=== PATIENT | female | born 1955 | race Caucasian/White ===

== ENCOUNTER 2018-12-18 20:45 | Emergency (ER) | payer BC, OTHER, SELFPAY ==
[2018-12-18 20:48] VITALS: BP 116/85; PULSE 71; RESP 18; TEMP 36.6; O2SAT 99
--- NOTE | 2018-12-18 20:58 | ED.GENADUL_ITS ---
Discharge Plan Disposition Patient Disposition: HOME Condition: Stable Discharge Details Chief Complaint: Laceration Clinical Impression: Laceration of lip Primary Care Provider: Crystal Banks ED Provider: Dilip Cabrera Home Meds and New Rx's Prescriptions: No Action calcium carb and citrate-vitD3 1 EACH tablet extended release 1 ea PO DAILY RF: 0 cinnamon bark 500 MG capsule 500 mg PO RF: 0 amlodipine 5 mg tablet 5 mg PO DAILY Qty: 90 RF: 3 lisinopril 20 mg tablet 20 mg PO DAILY Qty: 90 RF: 3 Discharge Instructions Instructions: Laceration (ED) Additional Instructions: return in 7-10 days to have the sutures reevaluated for removal if signs of infection develop such as redness spreading from the wound or yellow/white discharge from the wound return to the emergency department sooner Medical Decision Making 63 yo female states she tripped and hit her face on a step, no loc and fell from standing with no preceding symptoms to suggest syncope vs prescyope. She has a v shaped laceration that extends through the nia border of the right mid upper lip and appears to have had part of the lip skin removed during the fall, and has a 1..5 cm right upper lip wound on the mucosal surface that will require sutures as well No loose teeth or chipped teeth on exam. She meets all criteria per [place] head ct rules and nexus to not image her head or c spine at this time I alligned the nia border as best could be done given part of it was now gone from the skin being torn off with 4 sutures, and placed 2 absorbable sutures on the inner mucosal wound. She will return in 7-10 days for recheck to see if sutures are ready to be removed and return sooner for signs of infection Differential Diagnosis laceration, abrasion HPI General Mode of arrival: ambulatory . Date/Time Provider Initiated Documentation: 12/18/18 20:45 . Limitations to Documentation: no limitations . Information obtained by: patient . History of Present Illness 63 year old F presents to the emergency department with the chief complaint of upper mid lip laceration, described as moderate, and is localized to the face (upper lip). Patient reports no radiation. and it has been constant. No relieving factors improve symptom(s), No exacerbating factors reported . Patient did receive the following treatments prior to arrival, none Related Data Home Medications Medication Instructions Recorded Confirmed calcium carb and citrate-vitD3 1 ea PO DAILY 01/19/13 12/18/18 cinnamon bark 500 mg PO 03/28/17 07/11/18 amlodipine 5 mg tablet 5 mg PO DAILY #90 tab-cap 08/08/18 12/18/18 lisinopril 20 mg tablet 20 mg PO DAILY #90 tab-cap 08/08/18 12/18/18 Previous Rx's Medication Instructions Recorded amlodipine 5 mg tablet 5 mg PO DAILY #90 tab-cap 08/08/18 lisinopril 20 mg tablet 20 mg PO DAILY #90 tab-cap 08/08/18 Allergies Allergy/AdvReac Type Severity Reaction Status Date / Time hydrochlorothiazide AdvReac Unknown hypercalcem Verified 12/18/18 20:50 ia General Stated Complaint: Laceration NIRU: 4 Review of Systems Review of Systems All systems reviewed & are unremarkable except as noted in HPI and below Constitutional Denies chills and Denies fever(s) ENT Denies change in voice Cardiovascular Denies chest pain and Denies dyspnea Respiratory Denies cough and Denies dyspnea Gastrointestinal Denies abdominal pain, Denies nausea and Denies vomiting PFSH Surgical History Parathyroidectomy Family History Mother Personal history of malignant neoplasm Father Heart disease Grandmother Diabetes Social History Smoking/Tobacco Use Status: Never Alcohol Intake: current Alcohol Intake frequency: a few times a week Alcohol type: wine Substance use type: does not use Number of Children: 1 What type of physical activity do you participate in: walking Duration: 15-30 minutes/day Frequency: 3-4 times per week Working smoke detector in home: Yes Fire extinguisher in home: Yes Carbon monox detector in home: Yes Exam Const General: no acute distress Orientation: alert HENMT Head: normal to inspection Ears: external ears normal General nose exam: external nose normal Mouth: moist mucous membranes Eyes General: appearance normal, both eyes and all related structures Neck Neck: normal visual inspection Resp Effort & Inspection: normal respiratory effort and able to speak in complete sentences Cardio Rate: regular rate Skin General skin exam: no rashes or lesions noted Neuro General: alert and oriented x3 Extrem General: normal to inspection Psych Mental Status: mental status grossly normal Course Vital Signs Temperature 36.6 C 12/18/18 20:48 Pulse 71 12/18/18 20:48 Respiratory Rate 18 12/18/18 20:48 Blood Pressure 116/85 12/18/18 20:48 Pulse Oximetry 99 12/18/18 20:48 Temperature 36.6 C 12/18/18 20:48 Temperature Source Skin 12/18/18 20:48 Pulse 71 12/18/18 20:48 Respiratory Rate 18 12/18/18 20:48 Respiratory Effort Non-Labored 12/18/18 20:51 Blood Pressure 116/85 12/18/18 20:48 Blood Pressure Position Sitting 12/18/18 20:48 Pulse Oximetry 99 12/18/18 20:48 Oxygen Delivery Method Room Air 12/18/18 20:48 Oxygen Flow Rate 0 12/18/18 20:48 Pain Level 4 12/18/18 20:48 Procedures Laceration Laceration 1: Site: lip Size (cm): 2 Description: irregular Local Anesthetic: Lidocaine 1% and with Epi Amount of anesthesia used (mL): 6 Pre-repair: wound explored, irrigated extensively and wound margins revised Skin layer closed with: vicryl Size (cm): 5-0 Number of sutures: 4 Laceration 2: Site: lip Size (cm): 1.5 Description: linear Depth: simple, single layer Local Anesthetic: Lidocaine 1% and with Epi Amount of anesthesia used (mL): 3 Pre-repair: wound explored and irrigated extensively Skin layer closed with: other (chromic gut) Size (cm): 5-0 Number of sutures: 2
== END 2018-12-18 21:30 | disposition home or self-care (01) ==
LOC: ER 21:36
PROVIDERS: Emergency Provider Emergency Medicine; PCP Internal Medicine
DX: S01.511A Laceration without foreign body of lip, initial encounter (principal); W10.8XXA Fall (on) (from) other stairs and steps, initial encounter
CPT/HCPCS: 12011

== ENCOUNTER 2018-12-19 08:22 | Emergency (ER) | payer BC, SELFPAY ==
[2018-12-19 08:26] VITALS: BP 124/87; PULSE 91; RESP 16; TEMP 36.6; O2SAT 99
--- NOTE | 2018-12-19 08:35 | ED.GENADUL_ITS ---
Discharge Plan Disposition Patient Disposition: HOME Condition: Improving Discharge Details Chief Complaint: Recheck Clinical Impression: Dehiscence of laceration repair Primary Care Provider: Crystal Banks ED Provider: Edwar Patton Home Meds and New Rx's Prescriptions: New cephalexin 500 mg capsule 500 mg PO TID 7 Days Qty: 21 RF: 0 Continued calcium carb and citrate-vitD3 1 EACH tablet extended release 1 ea PO DAILY RF: 0 cinnamon bark 500 MG capsule 500 mg PO RF: 0 amlodipine 5 mg tablet 5 mg PO DAILY Qty: 90 RF: 3 lisinopril 20 mg tablet 20 mg PO DAILY Qty: 90 RF: 3 Discharge Instructions Additional Instructions: Return next Tuesday or Tuesday for suture removal. I placed an additional 2 nylon sutures that will need to be removed. 3 additional intraoral sutures were placed that we will slowly dissolved. Ice and/or popsicles for pain control. Return for any acute concerns. Continue your regular medication Medical Decision Making 63-year-old female who fell and struck her face at home last evening approximately 730. She suffered an upper lip and inner mucosal laceration across the vermilion border. It was repaired last night and she feels it is dehisced overnight. She arrives with normal vital signs and indeed has gaping of the wound at the vermilion border as well as within the oropharynx. Discussed with her is high risk for infection but given the cosmetic nature she agrees to pursue repeat repair. Anesthetized and cleansed. Repaired with suture: 2 5-0 nylon sutures across the vermilion border. 3 interrupted Vicryl sutures in the inner mucosa. I will place her on Keflex. She understands return precautions and will follow-up for suture removal. HPI General Mode of arrival: ambulatory . Date/Time Provider Initiated Documentation: 12/19/18 08:24 . Limitations to Documentation: no limitations . Information obtained by: patient and family . History of Present Illness 63 year old F presents to the emergency department with the chief complaint of Wound check and question dehiscence, described as mild, Quality is described as dull and constant, and is localized to the face. Patient reports no radiation. Patient started experiencing this hour(s) and it has been constant. No relieving factors improve symptom(s), No exacerbating factors reported . Patient notes no other symptoms.. Patient did receive the following treatments prior to arrival, none Related Data Home Medications Medication Instructions Recorded Confirmed calcium carb and citrate-vitD3 1 ea PO DAILY 01/19/13 12/18/18 cinnamon bark 500 mg PO 03/28/17 07/11/18 amlodipine 5 mg tablet 5 mg PO DAILY #90 tab-cap 18 12/18/18 lisinopril 20 mg tablet 20 mg PO DAILY #90 tab-cap 08/08/18 12/18/18 cephalexin 500 mg PO TID 7 Days #21 cap 12/19/18 Previous Rx's Medication Instructions Recorded amlodipine 5 mg tablet 5 mg PO DAILY #90 tab-cap 08/08/18 lisinopril 20 mg tablet 20 mg PO DAILY #90 tab-cap 08/08/18 cephalexin 500 mg PO TID 7 Days #21 cap 12/19/18 Allergies Allergy/AdvReac Type Severity Reaction Status Date / Time hydrochlorothiazide AdvReac Unknown hypercalcem Verified 12/18/18 20:50 ia General Stated Complaint: Recheck NIRU: 5 Review of Systems Review of Systems No fever, no discharge. 6 systems reviewed and otherwise neg [facility] Surgical History Parathyroidectomy Family History Mother Personal history of malignant neoplasm Father Heart disease Grandmother Diabetes Social History Smoking/Tobacco Use Status: Never Alcohol Intake: current Alcohol Intake frequency: a few times a week Alcohol type: wine Substance use type: does not use Number of Children: 1 What type of physical activity do you participate in: walking Duration: 15-30 minutes/day Frequency: 3-4 times per week Working smoke detector in home: Yes Fire extinguisher in home: Yes Carbon monox detector in home: Yes Exam Narrative Exam Narrative: GEN: awake, alert, oriented 3. Pleasant, well groomed, interactive. HEAD: Normocephalic, atraumatic ENT: Mucous membranes moist, appears to be dehiscence of wound at the vermilion border with approximately 5 mm gaping. The inner mucosa of the lip has a gaping wound as well EYES: PERRL, EOMI NECK: Full ROM, no EDITH, no menigismus EXT: Full ROM, no edema, no rash Neuro: Grossly normal neurologic exam, conversant, interactive. Psych: Speech fluent, thoughts congruent, affect normal Course Vital Signs Temperature 36.6 C 12/19/18 08:26 Pulse 91 H 12/19/18 08:26 Respiratory Rate 16 12/19/18 08:26 Blood Pressure 124/87 12/19/18 08:26 Pulse Oximetry 99 12/19/18 08:26 Temperature 36.6 C 12/19/18 08:26 Temperature Source Skin 12/19/18 08:26 Pulse 91 H 12/19/18 08:26 Respiratory Rate 16 12/19/18 08:26 Blood Pressure 124/87 12/19/18 08:26 Pulse Oximetry 99 12/19/18 08:26 Oxygen Delivery Method Room Air 12/19/18 08:26 Oxygen Flow Rate 0 12/19/18 08:26 Pain Level 2 12/19/18 08:26 Procedures Laceration Laceration 1: Site: face and lip Side (If applicable): left Description: involves nia border and involves lid margin Local Anesthetic: Lidocaine 1% Pre-repair: wound explored and irrigated extensively Skin layer closed with: nylon Size (cm): 5-0 Number of sutures: 2 Muscle layer closed with: vicryl Size: 5-0 Number of sutures: 3
[2018-12-19 09:18] VITALS: BP 124/87; PULSE 91; RESP 16; TEMP 36.6; O2SAT 99
== END 2018-12-19 09:20 | disposition home or self-care (01) ==
PROVIDERS: Emergency Provider Emergency Medicine; PCP Internal Medicine
DX: T81.33XA Disruption of traumatic injury wound repair, initial encounter (principal)
CPT/HCPCS: 12011

== ENCOUNTER 2018-12-26 09:57 | Emergency (ER) | payer BC, SELFPAY ==
[2018-12-26 10:00] VITALS: TEMP 36.5
--- NOTE | 2018-12-26 10:09 | ED.GENADUL_ITS ---
Discharge Plan Disposition Patient Disposition: HOME Condition: Stable Discharge Details Chief Complaint: SutureRem Clinical Impression: Encounter for removal of sutures Primary Care Provider: Crystal Banks ED Provider: Dilip Cabrera Home Meds and New Rx's Prescriptions: No Action calcium carb and citrate-vitD3 1 EACH tablet extended release 1 ea PO DAILY RF: 0 cinnamon bark 500 MG capsule 500 mg PO RF: 0 amlodipine 5 mg tablet 5 mg PO DAILY Qty: 90 RF: 3 lisinopril 20 mg tablet 20 mg PO DAILY Qty: 90 RF: 3 Discharge Instructions Instructions: Stitches Removal (ED) HPI General Date/Time Provider Initiated Documentation: 12/26/18 09:59 . Related Data Home Medications Medication Instructions Recorded Confirmed calcium carb and citrate-vitD3 1 ea PO DAILY 01/19/13 12/18/18 cinnamon bark 500 mg PO 03/28/17 07/11/18 amlodipine 5 mg tablet 5 mg PO DAILY #90 tab-cap 08/08/18 12/18/18 lisinopril 20 mg tablet 20 mg PO DAILY #90 tab-cap 18 12/18/18 Previous Rx's Medication Instructions Recorded amlodipine 5 mg tablet 5 mg PO DAILY #90 tab-cap 08/08/18 lisinopril 20 mg tablet 20 mg PO DAILY #90 tab-cap 08/08/18 Allergies Allergy/AdvReac Type Severity Reaction Status Date / Time hydrochlorothiazide AdvReac Unknown hypercalcem Verified 12/18/18 20:50 ia General Stated Complaint: SutureRem NIRU: 4 PFSH Social History Smoking/Tobacco Use Status: Never Alcohol Intake: current Alcohol Intake frequency: a few times a week Alcohol type: wine Substance use type: does not use Number of Children: 1 What type of physical activity do you participate in: walking Duration: 15-30 minutes/day Frequency: 3-4 times per week Working smoke detector in home: Yes Fire extinguisher in home: Yes Carbon monox detector in home: Yes Do you feel safe at home: Yes Do you feel safe in your relationship?: Yes Course Vital Signs Temperature 36.5 C 12/26/18 10:00 Temperature 36.5 C 12/26/18 10:00 Oxygen Delivery Method Room Air 12/26/18 10:00 Oxygen Flow Rate 0 12/26/18 10:00 Pain Level 2 12/26/18 10:00
== END 2018-12-26 11:33 | disposition home or self-care (01) ==
PROVIDERS: Emergency Provider Emergency Medicine; PCP Internal Medicine
DX: S01.511D Laceration without foreign body of lip, subsequent encounter (principal); W10.8XXD Fall (on) (from) other stairs and steps, subsequent encounter; Z48.02 Encounter for removal of sutures

== ENCOUNTER 2019-01-08 02:10 | Outpatient (CLI) | payer BC, SELFPAY ==
[2019-01-08 07:47] LABS: HCT 40.3 % (36.0-46.0); HGB 13.6 g/dL (12.0-15.5); Mean Corp. HGB Concentration 33.7 g/dL (32.0-36.0); Mean Corpuscular Hemoglobin 31.8 pg (27.0-33.0); Mean Corpuscular Volume 94.2 fL (80-95); Mean Platelet Volume 9.6 fL (8.0-11.0); Platelet Count 307 x1000/uL (130-400); RBC 4.28 m/cumm (4.00-5.20); RBC Distribution Width 12.3 % (11.7-14.6); White Blood Cell Count 4.64 k/cumm (4.4-10.8)
[2019-01-08 08:32] LABS: Anion Gap 12.2 mmol/L (3-11); BUN 14 mg/dL (7-18); CO2 25.8 mmol/L (21.0-32.0); CREATININE 0.83 mg/dL (0.55-1.02); Calcium 9.2 mg/dL (8.5-10.1); Chloride 103 mmol/L (98-107); Cholesterol 234 mg/dL (50-200); Glucose 95 mg/dL (70-100); HDL Cholesterol 69 mg/dL (40-60); LDL CHOLESTEROL 131 mg/dL (<100); Potassium 4.3 mmol/L (3.5-5.1); Sodium 141 mmol/L (136-145); Triglyceride 164 mg/dL (30-150)
== END 2019-01-08 02:30 ==
PROVIDERS: PCP Internal Medicine; Visit Provider Internal Medicine
DX: I10 Essential (primary) hypertension (principal); Z83.2 Family history of diseases of the blood and blood-forming organs and certain disorders involving the immune mechanism
CPT/HCPCS: 36415; 80048; 80061; 83721; 85027

== ENCOUNTER 2019-01-24 09:58 | Emergency (ER) | payer BC, SELFPAY ==
[2019-01-24 10:03] VITALS: BP 148/94; PULSE 80; RESP 20; TEMP 36.9; O2SAT 100
--- NOTE | 2019-01-24 10:15 | W.ED.GENAD ---
Discharge Plan Disposition Patient Disposition: HOME Condition: Improving Discharge Details Chief Complaint: Recheck Clinical Impression: Visit for suture removal Primary Care Provider: Crystal Banks ED Provider: Edwar Patton Home Meds and New Rx's Prescriptions: Continued calcium carb and citrate-vitD3 1 EACH tablet extended release 1 ea PO DAILY RF: 0 cinnamon bark 500 MG capsule 500 mg PO DAILY RF: 0 amlodipine 5 mg tablet 5 mg PO DAILY Qty: 90 RF: 3 lisinopril 20 mg tablet 20 mg PO DAILY Qty: 90 RF: 3 Discharge Instructions Additional Instructions: You may continue to gently remodel the scar as we discussed. Continue to apply moisturizer or lip balm. Return for any acute concern Medical Decision Making 63-year-old female with residual suture in place following repair of upper lip in mid December. Removed without difficulty. She does have some persistent scar tissue but the repair is well-appearing. Discussed with her home management. She is stable for discharge to home HPI General Mode of arrival: ambulatory. Date/Time Provider Initiated Documentation: 01/24/19 10:00. Limitations to Documentation: no limitations. Information obtained by: patient. History of Present Illness 63 year old F presents to the emergency department with the chief complaint of Residual stitch from suture repair in a, Quality is described as dull, and is localized to the face and mouth. Patient reports no radiation. Patient started experiencing this week(s) and it has been constant. No relieving factors improve symptom(s), Patient notes no other symptoms.. Patient did receive the following treatments prior to arrival, none Related Data Home Medications Medication Instructions Recorded Confirmed calcium carb and citrate-vitD3 1 ea PO DAILY 01/19/13 01/24/19 cinnamon bark 500 mg PO DAILY 03/28/17 01/24/19 amlodipine 5 mg tablet 5 mg PO DAILY #90 tab-cap 08/08/18 01/24/19 lisinopril 20 mg tablet 20 mg PO DAILY #90 tab-cap 08/08/18 01/24/19 Previous Rx's Medication Instructions Recorded amlodipine 5 mg tablet 5 mg PO DAILY #90 tab-cap 08/08/18 lisinopril 20 mg tablet 20 mg PO DAILY #90 tab-cap 08/08/18 Allergies Allergy/AdvReac Type Severity Reaction Status Date / Time hydrochlorothiazide AdvReac Unknown hypercalcem Verified 01/24/19 10:05 ia General Stated Complaint: Recheck NIRU: 4 Review of Systems Review of Systems 2 systems reviewed and otherwise neg PFSH Surgical History Parathyroidectomy Family History Mother Personal history of malignant neoplasm Father Heart disease Grandmother Diabetes Social History Smoking/Tobacco Use Status: Never Alcohol Intake: current Alcohol Intake frequency: a few times a week Alcohol type: wine Drug use: Never Substance use type: does not use Household members: spouse Housing: house Number of Children: 1 current occupation: speech pathologist What is your relationship status?: Panel score (0-1 are the most socially isolated patients): 1 What type of physical activity do you participate in: walking Duration: 15-30 minutes/day Frequency: 3-4 times per week Seatbelt use: always Drive intox or ride w/intox medical driver: No Working smoke detector in home: Yes Fire extinguisher in home: Yes Carbon monox detector in home: Yes Do you feel safe at home: Yes Do you feel safe in your relationship?: Yes Exam Narrative Exam Narrative: GEN: awake, alert, oriented 3. Pleasant, well groomed, interactive. HEAD: Normocephalic, atraumatic ENT: Mucous membranes moist, oropharynx unremarkable, there is a residual stitch protruding from the upper lip in the midline. EYES: PERRL, EOMI Neuro: Grossly normal neurologic exam, conversant, interactive. Psych: Speech fluent, thoughts congruent, affect normal Course Vital Signs Temperature 36.9 C 01/24/19 10:03 Pulse 80 01/24/19 10:03 Respiratory Rate 20 01/24/19 10:03 Blood Pressure 148/94 H 01/24/19 10:03 Pulse Oximetry 100 01/24/19 10:03 Temperature 36.9 C 01/24/19 10:03 Temperature Source Temporal Artery Scan 01/24/19 10:03 Pulse 80 01/24/19 10:03 Respiratory Rate 20 01/24/19 10:03 Respiratory Effort Non-Labored 01/24/19 10:03 Blood Pressure 148/94 H 01/24/19 10:03 Blood Pressure Position Sitting 01/24/19 10:03 Pulse Oximetry 100 01/24/19 10:03 Oxygen Delivery Method Room Air 01/24/19 10:03 Oxygen Flow Rate 0 01/24/19 10:03 Pain Level 0 01/24/19 10:03
--- NOTE | 2019-01-24 10:18 | ED.GENADUL_ITS ---
Discharge Plan Disposition Patient Disposition: HOME Condition: Improving Discharge Details Chief Complaint: Recheck Clinical Impression: Visit for suture removal Primary Care Provider: Crystal Banks ED Provider: Edwar Patton Home Meds and New Rx's Prescriptions: Continued calcium carb and citrate-vitD3 1 EACH tablet extended release 1 ea PO DAILY RF: 0 cinnamon bark 500 MG capsule 500 mg PO DAILY RF: 0 amlodipine 5 mg tablet 5 mg PO DAILY Qty: 90 RF: 3 lisinopril 20 mg tablet 20 mg PO DAILY Qty: 90 RF: 3 Discharge Instructions Additional Instructions: You may continue to gently remodel the scar as we discussed. Continue to apply moisturizer or lip balm. Return for any acute concern Medical Decision Making 63-year-old female with residual suture in place following repair of upper lip in mid December. Removed without difficulty. She does have some persistent scar tissue but the repair is well-appearing. Discussed with her home management. She is stable for discharge to home HPI General Mode of arrival: ambulatory . Date/Time Provider Initiated Documentation: 01/24/19 10:00 . Limitations to Documentation: no limitations . Information obtained by: patient . History of Present Illness 63 year old F presents to the emergency department with the chief complaint of Residual stitch from suture repair in a, Quality is described as dull, and is localized to the face and mouth. Patient reports no radiation. Patient started experiencing this week(s) and it has been constant. No relieving factors improve symptom(s), Patient notes no other symptoms.. Patient did receive the following treatments prior to arrival, none Related Data Home Medications Medication Instructions Recorded Confirmed calcium carb and citrate-vitD3 1 ea PO DAILY 01/19/13 01/24/19 cinnamon bark 500 mg PO DAILY 03/28/17 01/24/19 amlodipine 5 mg tablet 5 mg PO DAILY #90 tab-cap 08/08/18 01/24/19 lisinopril 20 mg tablet 20 mg PO DAILY #90 tab-cap 08/08/18 01/24/19 Previous Rx's Medication Instructions Recorded amlodipine 5 mg tablet 5 mg PO DAILY #90 tab-cap 08/08/18 lisinopril 20 mg tablet 20 mg PO DAILY #90 tab-cap 08/08/18 Allergies Allergy/AdvReac Type Severity Reaction Status Date / Time hydrochlorothiazide AdvReac Unknown hypercalcem Verified 01/24/19 10:05 ia General Stated Complaint: Recheck NRIU: 4 Review of Systems Review of Systems 2 systems reviewed and otherwise neg PFSH Surgical History Parathyroidectomy Family History Mother Personal history of malignant neoplasm Father Heart disease Grandmother Diabetes Social History Smoking/Tobacco Use Status: Never Alcohol Intake: current Alcohol Intake frequency: a few times a week Alcohol type: wine Drug use: Never Substance use type: does not use Household members: spouse Housing: house Number of Children: 1 current occupation: speech pathologist What is your relationship status?: Panel score (0-1 are the most socially isolated patients): 1 What type of physical activity do you participate in: walking Duration: 15-30 minutes/day Frequency: 3-4 times per week Seatbelt use: always Drive intox or ride w/intox logging truck driver: No Working smoke detector in home: Yes Fire extinguisher in home: Yes Carbon monox detector in home: Yes Do you feel safe at home: Yes Do you feel safe in your relationship?: Yes Exam Narrative Exam Narrative: GEN: awake, alert, oriented 3. Pleasant, well groomed, interactive. HEAD: Normocephalic, atraumatic ENT: Mucous membranes moist, oropharynx unremarkable, there is a residual stitch protruding from the upper lip in the midline. EYES: PERRL, EOMI Neuro: Grossly normal neurologic exam, conversant, interactive. Psych: Speech fluent, thoughts congruent, affect normal Course Vital Signs Temperature 36.9 C 01/24/19 10:03 Pulse 80 01/24/19 10:03 Respiratory Rate 20 01/24/19 10:03 Blood Pressure 148/94 H 01/24/19 10:03 Pulse Oximetry 100 01/24/19 10:03 Temperature 36.9 C 01/24/19 10:03 Temperature Source Temporal Artery Scan 01/24/19 10:03 Pulse 80 01/24/19 10:03 Respiratory Rate 20 01/24/19 10:03 Respiratory Effort Non-Labored 01/24/19 10:03 Blood Pressure 148/94 H 01/24/19 10:03 Blood Pressure Position Sitting 01/24/19 10:03 Pulse Oximetry 100 01/24/19 10:03 Oxygen Delivery Method Room Air 01/24/19 10:03 Oxygen Flow Rate 0 01/24/19 10:03 Pain Level 0 01/24/19 10:03
== END 2019-01-24 10:32 | disposition home or self-care (01) ==
PROVIDERS: Emergency Provider Emergency Medicine; PCP Internal Medicine
DX: S01.511D Laceration without foreign body of lip, subsequent encounter (principal); X58.XXXD Exposure to other specified factors, subsequent encounter; Z48.02 Encounter for removal of sutures

== ENCOUNTER 2019-09-20 02:27 | Outpatient (CLI) | payer BC, SELFPAY ==
--- NOTE | 2019-09-20 07:45 | DI.MAMMO_ITS ---
EXAM: MAMMO SCREENING CLINICAL HISTORY: screening TECHNIQUE: Mammograms were interpreted according to the usual protocol including computer analysis w [employer] CAD system, tomosynthesis and C-view imaging. FINDINGS: The breasts are of moderate density with fairly symmetrical distribution of fibroglandular tissue. N o dominant mass or clumped microcalcification is identified in either breast. Current examination is compared with previous examinations including March 2017 and there has been no gross interval change in appearance in comparison with the previous studies. IMPRESSION: No specific evidence of malignancy at this time. Routine screening examinations are suggested at year ly intervals in this age group according to the ACS/ACR guidelines. Category 1. Breast density, categ ory B. BI-RADS Cat 1 - Negative. Breast Density - Category B - Scattered areas of fibroglandular density.
== END 2019-09-20 02:47 ==
PROVIDERS: PCP Internal Medicine; Visit Provider Nurse Practitioner Family
DX: Z12.31 Encounter for screening mammogram for malignant neoplasm of breast (principal)
CPT/HCPCS: 77063; 77067

== ENCOUNTER 2020-05-28 04:01 | Outpatient (CLI) | payer BC, SELFPAY ==
[2020-05-28 17:12] LABS: Anion Gap 8.1 mmol/L (3-11); BUN 15 mg/dL (7-18); CO2 28.9 mmol/L (21.0-32.0); CREATININE 0.85 mg/dL (0.55-1.02); Calcium 9.8 mg/dL (8.5-10.1); Chloride 99 mmol/L (98-107); Glucose 143 mg/dL (74-106); Potassium 4.4 mmol/L (3.5-5.1); Sodium 136 mmol/L (136-145)
[2020-05-28 23:16] LABS: Calculated LDL 139 mg/dL (<100); Cholesterol 249 mg/dL (<200); HDL Cholesterol 89 mg/dL (40-60); Triglyceride 107 mg/dL (<150)
== END 2020-05-28 04:21 ==
PROVIDERS: PCP Internal Medicine; Visit Provider Internal Medicine
DX: E78.00 Pure hypercholesterolemia, unspecified (principal); I10 Essential (primary) hypertension
CPT/HCPCS: 36415; 80048; 80061

== ENCOUNTER 2020-11-03 10:18 | Outpatient (REF) | payer BC, SELFPAY ==
--- NOTE | 2020-11-03 10:00 | PAPFT_PTH ---
PATIENT: Katerina Horvath LOC: [facility] U#:[id number] AGE/SX: 64/F ROOM: RE11/03/[address]: JESUS Iverson : 1955 BED: DIS: 11/03/2020 SPEC #: [id number] RECD: 11/03/20 13:12 STATUS: EDVIN REQ #: [id number] RYLAN: 11/03/20 10:[address]: Stefanie Powers DEPT: [facility] Cytology RECD BY: Gianna Augustin ENTERED: 11/03/20 13:13 SP TYPE: PAPFT OTHR DR: Crystal Banks MD Tissues: 1 - CX/ENDOCX FOR PAP SMEARS Procedures: PAP THIN PREP/[facility] Screening HPV DNA PROBE Comments: [id number]
== END 2020-11-03 10:19 | disposition home or self-care (01) ==
LOC: LBN 10:18
PROVIDERS: PCP Internal Medicine; Visit Provider Nurse Practitioner Family
DX: Z12.4 Encounter for screening for malignant neoplasm of cervix (principal); Z11.51 Encounter for screening for human papillomavirus (HPV)
CPT/HCPCS: 88142; 87624

== ENCOUNTER 2021-02-17 02:49 | Outpatient (CLI) | payer BC, SELFPAY ==
--- NOTE | 2021-02-17 08:00 | DI.DEXA_ITS ---
Exam(s) XR DEXA BONE DENSITY W/WO KI EXAM: XR DEXA BONE DENSITY W/WO KI CLINICAL HISTORY: f/u osteopenia,M85.80 TECHNIQUE: COMPARISON: Comparison examination is 08/09/2011. FINDINGS: Lateral Spine Image: Unremarkable. No compression deformities identified. Left hip: Total T-Score: -1.7. This compares with -1.6 on the prior examination. Total Z-Score: -0.7 T- and Z-scores: Findings are consistent with osteopenia. Lumbar Spine: Total T-Score: -0.5. This compares to -1.5 on the prior examination. Total Z-Score: 1.2 T- and Z-scores: Within normal limits. IMPRESSION: No evidence of osteoporosis.
== END 2021-02-17 03:09 ==
PROVIDERS: PCP Internal Medicine; Visit Provider Internal Medicine
DX: M85.88 Other specified disorders of bone density and structure, other site (principal)
CPT/HCPCS: 77080

== ENCOUNTER 2021-07-15 13:48 | Outpatient (REF) | payer BC, SELFPAY | END 2021-07-15 13:49 | disposition home or self-care (01) | LOC: LBN 13:48 | PROVIDERS: PCP Internal Medicine; Referring Provider Internal Medicine; Visit Provider Internal Medicine | DX: R30.0 Dysuria (principal) | CPT/HCPCS: 87086 ==

== ENCOUNTER 2021-12-18 02:46 | Outpatient (CLI) | payer MEDICARE, SELFPAY ==
[2021-12-18 10:39] LABS: Anion Gap 7.8 mmol/L (3-11); BUN 14 mg/dL (7-18); CO2 29.2 mmol/L (21.0-32.0); CREATININE 0.9 mg/dL (0.55-1.02); Calcium 9.6 mg/dL (8.5-10.1); Calculated LDL 141 mg/dL (<100); Chloride 102 mmol/L (98-107); Cholesterol 240 mg/dL (<200); Glucose 103 mg/dL (74-106); HDL Cholesterol 81 mg/dL (40-60); Potassium 4.8 mmol/L (3.5-5.1); Sodium 139 mmol/L (136-145); Triglyceride 90 mg/dL (<150)
== END 2021-12-18 02:47 | disposition home or self-care (01) ==
LOC: LBO 02:46
PROVIDERS: PCP Internal Medicine; Visit Provider Internal Medicine
DX: I10 Essential (primary) hypertension (principal)
CPT/HCPCS: 36415; 80048; 80061

== ENCOUNTER → 2022-01-21 01:06 | Outpatient (CLI) | payer MEDICARE, OTHER, SELFPAY ==
--- NOTE | 2022-01-21 12:32 | DI.MAMMO_ITS ---
Exam(s) MAMMO SCREENING EXAM: MAMMO SCREENING CLINICAL HISTORY: screening,z12.39 TECHNIQUE: Mammograms were interpreted according to the usual protocol including computer analysis w [employer] CAD system, tomosynthesis and C-view imaging. COMPARISON: FINDINGS: The breasts are of moderate density with fairly symmetrical distribution of fibroglandular tissue. N o dominant mass or clumped microcalcification is identified in either breast. The current examinatio n is compared with previous examinations including September 2019 and there has been no gross interval change in appearance in comparison with the prior studies. IMPRESSION: No specific evidence of malignancy at this time. Routine screening examinations are suggested at yea rly intervals in this age group according to the ACS ACR guidelines. BI-RADS Category 1 - Negative Breast Density - Category B - Scattered areas of fibroglandular density
== END ==
PROVIDERS: PCP Internal Medicine; Visit Provider Nurse Practitioner Family
DX: Z12.31 Encounter for screening mammogram for malignant neoplasm of breast (principal)
CPT/HCPCS: 77063; 77067

== ENCOUNTER 2023-02-28 04:12 | Outpatient (CLI) | payer MEDICARE, OTHER, SELFPAY ==
[2023-02-28 10:16] LABS: Anion Gap 9.3 mmol/L (3-11); BUN 11 mg/dL (7-18); CO2 26.7 mmol/L (21.0-32.0); CREATININE 0.8 mg/dL (0.55-1.02); Calcium 8.9 mg/dL (8.5-10.1); Calculated LDL 119 mg/dL (<100); Chloride 99 mmol/L (98-107); Cholesterol 232 mg/dL (<200); Estimated GFR 81.21 (mL/min/1.73m2); Glucose 94 mg/dL (74-106); HDL Cholesterol 93 mg/dL (40-60); Sodium 135 mmol/L (136-145); Triglyceride 102 mg/dL (<150)
[2023-02-28 10:36] LABS: Vitamin D 25 Total 46.6 ng/mL (30-100)
== END 2023-02-28 04:13 | disposition home or self-care (01) ==
PROVIDERS: PCP Nurse Practitioner Adult Health; Visit Provider Nurse Practitioner Adult Health
DX: I10 Essential (primary) hypertension (principal); M85.80 Other specified disorders of bone density and structure, unspecified site; E21.2 Other hyperparathyroidism
CPT/HCPCS: 36415; 80048; 80061; 82306

== ENCOUNTER 2023-03-10 03:15 | Outpatient (CLI) | payer MEDICARE, OTHER, SELFPAY ==
--- NOTE | 2023-03-10 07:33 | DI.MAMMO_ITS ---
Exam(s) MAMMO SCREENING EXAM: MAMMO SCREENING CLINICAL HISTORY: screening,z12.39 TECHNIQUE: Mammograms were interpreted according to the usual protocol including computer analysis w [employer] CAD system, tomosynthesis and C-view imaging. COMPARISON: through 2021 FINDINGS: The breasts are composed of mainly fatty density , Breast Density category A. No suspicious masses or suspicious microcalcifications are seen. No skin thickening or abnormal axillary lymph nodes are seen. There has been no significant change from prior exams. IMPRESSION: BI-RADS Category 1, Negative mammogram Yearly screening mammography is recommended. Breast Density - Category A, fatty density. A negative radiographic report should not delay biopsy if a dominant or clinically suspicious mass is present. Up to ten percent of cancers are not identified on mammography. A negative report may reinforce clinical impression. Adenosis and dense breasts may obscure an underlying neoplasm. False positive reports average 6 to 10%. Patient will receive a letter notifying them of these results.
== END 2023-03-10 03:35 ==
PROVIDERS: PCP Nurse Practitioner Adult Health; Visit Provider Nurse Practitioner Adult Health
DX: Z12.31 Encounter for screening mammogram for malignant neoplasm of breast (principal)
CPT/HCPCS: 77063; 77067

== ENCOUNTER 2023-03-25 12:49 | Outpatient (REF) | payer MEDICARE, SELFPAY | END 2023-03-25 12:50 | disposition home or self-care (01) | LOC: LBN 12:49 | PROVIDERS: PCP Nurse Practitioner Adult Health; Visit Provider Family Medicine | DX: R30.0 Dysuria (principal); R39.11 Hesitancy of micturition; R82.998 Other abnormal findings in urine | CPT/HCPCS: 87077; 87086; 87186 ==

== ENCOUNTER → 2023-09-07 01:01 | Outpatient (CLI) | payer MEDICARE, OTHER, SELFPAY ==
--- NOTE | 2023-09-07 10:45 | DI.RAD_ITS ---
Exam(s) XR KNEE LT 3V AP,LAT,LUZ EXAM: XR KNEE LT 3V AP,LAT,LUZ CLINICAL HISTORY: medial knee pain; h/o meniscal injury; ?OA,m25.562. TECHNIQUE: 2D digital imaging was performed. COMPARISON: No exams were available for comparison FINDINGS: 3 views No evidence of fracture but there is a joint effusion. There is advanced [id number] narrowing of t he medial compartment seen on the weight-bearing view. Lateral compartment exhibits normal height. Mild degenerative changes in the patellofemoral compartment. There is a calcification noted laterally which appears most probably extra-articular, measuring appro ximately 7 x 5 mm, lateral to the distal metaphysis of the femur. IMPRESSION: Degenerative changes, most prominent in the medial compartment. Joint effusion. Laterally located 7 x 5 mm calcification which is most probably extra-articular. DATA REPOSITORY: RADIATION DOSE DELIVERED:
== END ==
PROVIDERS: PCP Nurse Practitioner Adult Health; Visit Provider Nurse Practitioner Adult Health
DX: M17.11 Unilateral primary osteoarthritis, right knee (principal)
CPT/HCPCS: 73562

== ENCOUNTER → 2023-09-15 15:08 | Outpatient (CLI) | payer MEDICARE, OTHER, SELFPAY ==
--- NOTE | 2023-09-15 13:30 | DI.RAD_ITS ---
Exam(s) XR SHOULDER LT COMPLETE 2+V XR CLAVICLE LT EXAM: XR SHOULDER LT COMPLETE 2+V and XR clavicle LT CLINICAL HISTORY: joint space, acosta pathology, first rib fx? M25.512 PAIN LEFT SHOULDER. TECHNIQUE: 2D digital imaging was performed of the left clavicle and shoulder. Six images were obta ined. AP, [place], Y-view and axillary views were obtained. COMPARISON: No priors for comparison. FINDINGS: BONES: There is an acute fracture at the junction of the middle and distal thirds of the left clavicl e. There is 1 shaft's with displacement of the fracture. There is a somewhat mottled appearance of the clavicle at the fracture site. No bony destructive lesion is seen. JOINTS: No dislocation present. Mild degenerative changes are seen at both the acromioclavicular and glenohumeral joint. SOFT TISSUE: Visualized lungs are clear. IMPRESSION: Acute displaced fracture involving the junction of the middle and distal thirds of the left clavicle. There is 1 shaft's with displacement of the fracture. There is a somewhat mottled appearance of th e clavicle at the fracture site. This may represent a pathologic fracture. Please correlate with kris villasenor's clinical/trauma history. DATA REPOSITORY: RADIATION DOSE DELIVERED:
== END ==
PROVIDERS: PCP Nurse Practitioner Adult Health; Visit Provider Student in an Organized Health Care Education/Training Program
DX: S42.022A Displaced fracture of shaft of left clavicle, initial encounter for closed fracture (principal); X58.XXXA Exposure to other specified factors, initial encounter
CPT/HCPCS: 73000; 73030

== ENCOUNTER 2023-09-21 15:33 | Outpatient (CLI) | payer MEDICARE, OTHER, SELFPAY ==
--- NOTE | 2023-09-21 14:15 | DI.RAD_ITS ---
Exam(s) XR CLAVICLE LT EXAM: XR CLAVICLE LT CLINICAL HISTORY: F/U FRACTURE TECHNIQUE: 2D digital imaging was performed of the left clavicle. Two images were obtained. AP and axial views were obtained. COMPARISON: CR XR CLAVICLE LT from 09/15/2023 FINDINGS: BONES: There has been no change in alignment of the fracture involving the distal left clavicle. No new fractures identified. No bony destructive lesion is seen. JOINTS: The acromioclavicular joint is intact. SOFT TISSUE: Normal. IMPRESSION: Stable alignment of the left clavicular fracture. DATA REPOSITORY: RADIATION DOSE DELIVERED:
== END 2023-09-21 15:34 | disposition home or self-care (01) ==
LOC: DIORS 15:33
PROVIDERS: PCP Nurse Practitioner Adult Health; Referring Provider Nurse Practitioner Adult Health; Visit Provider Student in an Organized Health Care Education/Training Program
DX: S42.009A Fracture of unspecified part of unspecified clavicle, initial encounter for closed fracture (principal); S42.002A Fracture of unspecified part of left clavicle, initial encounter for closed fracture; W19.XXXA Unspecified fall, initial encounter; Z86.39 Personal history of other endocrine, nutritional and metabolic disease
CPT/HCPCS: 99203; 73000

== ENCOUNTER 2023-10-12 11:53 | Outpatient (CLI) | payer MEDICARE, OTHER, SELFPAY ==
--- NOTE | 2023-10-12 08:30 | DI.RAD_ITS ---
Exam(s) XR CLAVICLE LT EXAM: XR CLAVICLE LT CLINICAL HISTORY: F/U FRACTURE TECHNIQUE: 2D digital imaging was performed of the left clavicle. Two images were obtained. AP and axial views were obtained. COMPARISON: CR XR CLAVICLE LT from 09/21/2023 FINDINGS: BONES: There has been no change in alignment of the displaced fracture involving the lateral aspect o f the left clavicle. There is some callus formation about the fracture consistent with some interval healing. No bony destructive lesion is seen. JOINTS: The AC joint is intact. There are mild degenerative changes present. SOFT TISSUE: The visualized lung is clear. IMPRESSION: Stable alignment of the healing left clavicular fracture. DATA REPOSITORY: RADIATION DOSE DELIVERED:
== END 2023-10-12 11:54 | disposition home or self-care (01) ==
LOC: DIORS 11:54
PROVIDERS: PCP Nurse Practitioner Adult Health; Referring Provider Nurse Practitioner Adult Health; Visit Provider Student in an Organized Health Care Education/Training Program
DX: S42.002D Fracture of unspecified part of left clavicle, subsequent encounter for fracture with routine healing; X58.XXXD Exposure to other specified factors, subsequent encounter
CPT/HCPCS: 99213; 73000

== ENCOUNTER → 2023-10-14 08:56 | Outpatient (BNVA) | payer MEDICARE, OTHER, SELFPAY | PROVIDERS: PCP Nurse Practitioner Adult Health; Referring Provider Nurse Practitioner Adult Health; Visit Provider Student in an Organized Health Care Education/Training Program | DX: M17.12 Unilateral primary osteoarthritis, left knee (principal); M70.52 Other bursitis of knee, left knee | CPT/HCPCS: 99213 ==

== ENCOUNTER 2023-11-22 15:24 | Outpatient (CLI) | payer MEDICARE, OTHER, SELFPAY ==
--- NOTE | 2023-11-22 14:15 | DI.RAD_ITS ---
Exam(s) XR CLAVICLE LT EXAM: XR CLAVICLE LT CLINICAL HISTORY: F/U FRACTURE TECHNIQUE: 2D digital imaging was performed of the left clavicle. Two images were obtained. AP and axial views were obtained. COMPARISON: CR XR CLAVICLE LT from 10/12/2023 FINDINGS: BONES: There has been no change in alignment of the left clavicular fracture. Callus formation has d eveloped about the fracture consistent with some interval healing. No new fracture is seen. No bony destructive lesion is seen. JOINTS: No dislocation present. SOFT TISSUE: Normal. IMPRESSION: Stable alignment of the healing left clavicular fracture. DATA REPOSITORY: RADIATION DOSE DELIVERED:
== END 2023-11-22 15:25 | disposition home or self-care (01) ==
LOC: DIORS 15:24
PROVIDERS: PCP Nurse Practitioner Adult Health; Visit Provider Student in an Organized Health Care Education/Training Program
DX: S42.002D Fracture of unspecified part of left clavicle, subsequent encounter for fracture with routine healing (principal); X58.XXXD Exposure to other specified factors, subsequent encounter
CPT/HCPCS: 99213; 73000

== ENCOUNTER 2024-03-01 00:54 | Outpatient (CLI) | payer MEDICARE, OTHER, SELFPAY ==
[2024-03-01 08:48] LABS: Anion Gap 8.8 mmol/L (3-11); BUN 9 mg/dL (7-18); CO2 30.2 mmol/L (21.0-32.0); CREATININE 0.8 mg/dL (0.55-1.02); Calcium 9.1 mg/dL (8.5-10.1); Calculated LDL 122 mg/dL (<100); Chloride 99 mmol/L (98-107); Cholesterol 230 mg/dL (<200); Estimated GFR 80.71 (mL/min/1.73m2); Glucose 101 mg/dL (74-106); HDL Cholesterol 81 mg/dL (40-60); Potassium 3.9 mmol/L (3.5-5.1); Sodium 138 mmol/L (136-145); Triglyceride 136 mg/dL (<150)
== END 2024-03-01 00:55 | disposition home or self-care (01) ==
LOC: LBO 00:54
PROVIDERS: Absent Provider Nurse Practitioner Adult Health; PCP Nurse Practitioner Adult Health; Referring Provider Nurse Practitioner Adult Health; Visit Provider Nurse Practitioner Adult Health
DX: I10 Essential (primary) hypertension (principal)
CPT/HCPCS: 36415; 80048; 80061

== ENCOUNTER → 2024-03-28 02:26 | Outpatient (CLI) | payer MEDICARE, OTHER, SELFPAY ==
--- NOTE | 2024-03-28 06:45 | DI.MAMMO_ITS ---
Exam(s) MAMMO SCREENING EXAM: MAMMO SCREENING CLINICAL HISTORY: screening,z12.39. TECHNIQUE: Bilateral full field digital CC and MLO mammographic images were obtained with 3D tomosyn thesis and utilizing computer aided detection (CAD). COMPARISON: Prior mammograms were reviewed. FINDINGS: There has been no significant change in the appearance and distribution of the fibroglandular tissue. There are no CAD designations. There are no new spiculated masses nor malignant appearing microcalcification groups. There is no significant architectural distortion nor skin thickening-retraction. IMPRESSION: No radiographic evidence of malignancy. BI-RADS Category 1 - Negative Breast Density - Category B - Scattered areas of fibroglandular density Breast density Category C or D implies that the patient has dense breast tissue. Dense breast tissue can make it harder to find cancer on a mammogram. Dense breast tissue is also associated with an incr eased risk of breast cancer. This information about the result of the mammogram report was provided to the patient to raise their awareness. Use this report when you speak with the patient about their risks for breast cancer, which includes their family history. At that time, you may recommend additional screening tests (Ultrasoun d or MRI) as these tests may add significant information. A negative radiographic report should not delay biopsy if a dominant or clinically suspicious mass is present. Up to ten percent of cancers are not identified on mammography. A negative report may reinforce clinical impression. Adenosis and dense breasts may obscure an underlying neoplasm. False positive reports average 6 to 10%. Patient will receive a letter notifying them of these results.
== END ==
PROVIDERS: PCP Nurse Practitioner Adult Health; Visit Provider Nurse Practitioner Adult Health
DX: Z12.31 Encounter for screening mammogram for malignant neoplasm of breast (principal)
CPT/HCPCS: 77063; 77067

== ENCOUNTER 2024-04-25 16:11 | Outpatient (REF) | payer MEDICARE, OTHER, SELFPAY | END 2024-04-25 16:12 | disposition home or self-care (01) | LOC: LBN 16:11 | PROVIDERS: PCP Nurse Practitioner Adult Health; Visit Provider Nurse Practitioner Family | DX: R35.0 Frequency of micturition (principal); R30.0 Dysuria | CPT/HCPCS: 87077; 87086; 87186 ==

== ENCOUNTER 2025-04-09 03:51 | Outpatient (CLI) | payer MEDICARE, OTHER, SELFPAY ==
--- NOTE | 2025-04-09 07:00 | DI.MAMMO_ITS ---
Exam(s) MAMMO SCREENING EXAM: MAMMO SCREENING CLINICAL HISTORY: screening, Z12.39. TECHNIQUE: Bilateral full field digital CC and MLO mammographic images were obtained with 3D tomosynthesis and utilizing computer aided detection (CAD). COMPARISON: Prior mammograms were reviewed. FINDINGS: There has been no significant change in the appearance and distribution of the fibroglandular tissue. No CAD designations. There are no new spiculated masses nor malignant appearing microcalcification groups. There is no significant architectural distortion nor skin thickening-retraction. IMPRESSION: No radiographic evidence of malignancy. BI-RADS Category 1 - Negative Breast Density - Category A - The breast are almost entirely fatty. Breast density Category C or D implies that the patient has dense breast tissue. Dense breast tissue can make it harder to find cancer on a mammogram. Dense breast tissue is also associated with an increased risk of breast cancer. This information about the result of the mammogram report was provided to the patient to raise their awareness. Use this report when you speak with the patient about their risks for breast cancer, which includes their family history. At that time, you may recommend additional screening tests (Ultrasound or MRI) as these tests may add significant information. A negative radiographic report should not delay biopsy if a dominant or clinically suspicious mass is present. Up to ten percent of cancers are not identified on mammography. A negative report may reinforce clinical impression. Adenosis and dense breasts may obscure an underlying neoplasm. False positive reports average 6 to 10%. Patient will receive a letter notifying them of these results.
== END 2025-04-09 04:11 ==
LOC: DI 03:51
PROVIDERS: PCP Nurse Practitioner Adult Health; Visit Provider Nurse Practitioner Adult Health
DX: Z12.31 Encounter for screening mammogram for malignant neoplasm of breast (principal); R92.313 Mammographic fatty tissue density, bilateral breasts
CPT/HCPCS: 77063; 77067